=== PATIENT | male | born 1980 | race Two or more races ===

== ENCOUNTER 2018-09-15 17:16 | Emergency (ER) | payer MEDICARE, MEDICAID ==
[~2018-09-15] VITALS: Ht 188 cm; Wt 77.3 kg
[~2018-09-15 17:16] MED LIST: ALBU17AE26 IH; CEPH500C5 PO; IBUP-1984 PO; NO HOME MEDS
[2018-09-15 17:19] VITALS: BP 130/91
[2018-09-15] MEDS ORDERED: AMOX-422 PO (18:10)
== END 2018-09-15 18:42 | disposition home or self-care (01) ==
LOC: ER 17:16
DX: K04.7 Periapical abscess without sinus (principal); F12.90 Cannabis use, unspecified, uncomplicated; Z79.899 Other long term (current) drug therapy; Z56.0 Unemployment, unspecified
CPT/HCPCS: 99283

== ENCOUNTER 2019-09-29 18:02 | Emergency (ER) | payer MEDICARE, MEDICAID ==
[~2019-09-29] VITALS: Ht 185.4 cm; Wt 70.7 kg
[~2019-09-29 18:02] MED LIST changes: -CEPH500C5 PO
[2019-09-29] MEDS ORDERED: TETanus/Pertussis (Acell)/Diphther VAC/PF (Tdap-Adult) 0.5ml syringe IMVAC ONE (18:30)
[2019-09-29] MEDS ORDERED: LIDOcaine 2% (20mg/ml) 5ml vial SQ STA (18:58)
[2019-09-29] MEDS ORDERED: HYDROcodone/acetaminophen 5mg/325mg tablet PO ONE (19:10)
[2019-09-29] MEDS ORDERED: CEPH250T PO (19:12)
[2019-09-29] MEDS ORDERED: SULF1TAB49 PO (19:12)
--- NOTE | 2019-09-29 19:38 | NUR ---
SAMI RODRIGUEZ AWARE ALL SET UP FOR SHOULDER I& D
--- NOTE | 2019-09-29 20:00 | NUR ---
DR HARPER AND SUSTAIN ENGINEER MICHAEL LANCED AND ATTEMPTED TO DRAIN PATIENT'S RIGHT UPPER ARM: ONLY BLOOD CAME OUT OF WOUND. CLEANED AREA WITH NS AND GAUZE. APPLIED NON STICK, 4X4 GAUZE AND SILK TAPE; PROVIDED PATIENT WITH EXTRA GAUZE DEMARKATED SWOLLEN AREA ABOUT 9 CM BY 7 CM: TIMED AND DATED IT
[2019-09-29] MEDS ORDERED: LIDOcaine 1.5% w/epinephrine 1:200,000 5ml ampul SQ ONE (20:05)
[2019-09-29] MEDS ORDERED: sulfamethoxazole/trimethoprim DS (800/160mg) tablet PO ONE (20:15)
[2019-09-29] MEDS ORDERED: LIDOcaine 1% W/epiNEPHrine 1:200,000 10ml vial SQ ONE (20:20)
[2019-09-29 21:28] VITALS: BP 137/65
[2019-10-03] MEDS ORDERED: CLIN-5 PO (17:29)
[2019-10-03] MEDS ORDERED: HYDR-4383 PO (17:32)
[2019-10-03] MEDS ORDERED: PANT40TA4 PO (17:32)
[2019-10-03] MEDS ORDERED: IBUP-1984 PO (17:32)
== END 2019-09-29 20:20 | disposition home or self-care (01) ==
LOC: ER 18:03
DX: S49.91XA Unspecified injury of right shoulder and upper arm, initial encounter (principal); L02.413 Cutaneous abscess of right upper limb; F12.90 Cannabis use, unspecified, uncomplicated; Z56.0 Unemployment, unspecified; Z79.899 Other long term (current) drug therapy; X58.XXXA Exposure to other specified factors, initial encounter; Y93.55 Activity, bike riding; Y92.89 Other specified places as the place of occurrence of the external cause; Y99.8 Other external cause status
CPT/HCPCS: 10060; 73030; 90471; 90715; 99284; J2001; 99283

== ENCOUNTER 2024-05-26 18:16 | Emergency (ER) | payer MEDICARE, MEDICAID ==
[~2024-05-26] VITALS: Ht 188 cm; Wt 63.6 kg
[~2024-05-26 18:16] MED LIST changes: -ALBU17AE26 IH; +CLIN-232 PO; +HYDR-4383 PO; -IBUP-1984 PO; -NO HOME MEDS; +PANT40TA54 PO
[2024-05-26 18:20] VITALS: BP 143/103; PULSE 105; TEMP 97.3; O2SAT 98
[2024-05-26] MEDS ORDERED: IBUP-1984 PO (19:40)
[2024-05-26] MEDS ORDERED: LIDO700A32 TOP (19:40)
[2024-05-26 20:02] VITALS: RESP 16
[2024-05-26] MEDS: ketorolac trometh 15mg/ml vial 15 MG/ML ML IM ONE (20:02)
== END 2024-05-26 20:04 | disposition home or self-care (01) ==
LOC: ER 18:16
DX: M25.512 Pain in left shoulder (principal); F32.A Depression, unspecified; F12.90 Cannabis use, unspecified, uncomplicated; Z79.2 Long term (current) use of antibiotics; Z79.899 Other long term (current) drug therapy
CPT/HCPCS: 73030; 96372; 99283; J1885